=== PATIENT | male | born 1970 | race Caucasian/White ===

== ENCOUNTER 2018-10-04 19:49 | Emergency (ER) | payer OTHER ==
[~2018-10-04] VITALS: Ht 175.3 cm; Wt 69.0 kg
[2018-10-04] MEDS ORDERED: IBUPROFEN 600600 M1 PO (20:01)
[2018-10-04] MEDS ORDERED: FLOMAX0.4 MG PO (20:01)
[2018-10-04 20:48] LABS: ABSOLUTE NEUTROPHILS 5.4 thou/uL (1.4-8.2); BASOPHILS 1.3 % (0.0-2.0); EOSINOPHILS 5.8 % (0.0-3.0); HEMATOCRIT 43.6 % (42.0-52.0); HEMOGLOBIN 15.2 gm/dL (14.0-18.0); LYMPHOCYTES 23.6 % (24.0-44.0); MCV 91.6 fL (80.0-100.0); MONOCYTES 6.3 % (1.0-8.0); PLATELET COUNT 362 thou/uL (150-400); RBC 4.76 mil/uL (4.50-6.00); RDW 13.7 % (10.5-14.5); WBC 8.6 thou/uL (4.0-11.0)
[2018-10-04 20:55] LABS: ANION GAP 6 mmol/L (7-16); BUN 12 mg/dL (7-18); CALCIUM 9.3 mg/dL (8.5-10.1); CHLORIDE 103 mmol/L (98-107); CO2 29 mmol/L (21-32); GLUCOSE 99 mg/dL (74-106); POTASSIUM 4.7 mmol/L (3.5-5.1); SODIUM 138 mmol/L (136-145)
[2018-10-04 21:01] LABS: ALBUMIN 3.6 g/dL (3.4-5.0); SGOT 18 U/L (15-37); SGPT 19 U/L (30-65); TOTAL BILIRUBIN 0.3 mg/dL (<0.1-1.0); TOTAL PROTEIN 7.5 g/dL (6.4-8.2); TROPONIN-I <0.06 ng/mL (<0.06)
[2018-10-04 21:47] VITALS: BP 125/82
== END 2018-10-04 22:38 | disposition home or self-care (01) ==
LOC: ER 19:49
PROVIDERS: Physician Assistant
DX: J43.9 Emphysema, unspecified (principal); M71.21 Synovial cyst of popliteal space [Baker], right knee; R51 Headache; R42 Dizziness and giddiness; F17.210 Nicotine dependence, cigarettes, uncomplicated